=== PATIENT | female | born 1960 | race African-American/Black ===

== ENCOUNTER 2017-06-16 07:59 | Emergency (ER) | payer SELFPAY ==
[~2017-06-16] VITALS: Ht 170.2 cm; Wt 69.0 kg
[2017-06-16] MEDS ORDERED: CYCLOBENZAPRINE 10MG TABLET PO ONE (11:00)
[2017-06-16] MEDS ORDERED: KETOROLAC 60MG/2ML VIAL IM ONE (11:00)
[2017-06-16 11:14] LABS: CLARITY URINE CLEAR (CLEAR); COLOR URINE YELLOW (YELLOW); GLUCOSE URINE NEGATIVE (NEGATIVE); KETONES URINE NEGATIVE (NEGATIVE); LEUKOCYTE ESTERASE URINE NEGATIVE (NEGATIVE); NITRITE URINE NEGATIVE (NEGATIVE); OCCULT BLOOD URINE NEGATIVE (NEGATIVE); PH URINE 6.5 (4.5-8.0); PROTEIN URINE NEGATIVE (NEGATIVE); SPECIFIC GRAVITY URINE 1.006 (1.005-1.030); UROBILINOGEN URINE 0.2 E.U./dL (0.2-1.0)
[2017-06-16] MEDS ORDERED: HYDROCODONE/ACETAMINOPHEN 5/325MG TABLET PO ONE (13:45)
[2017-06-16 14:13] VITALS: BP 132/62
== END 2017-06-16 14:15 | disposition home or self-care (01) ==
LOC: ER 07:59
DX: M54.5 Low back pain (principal); F17.200 Nicotine dependence, unspecified, uncomplicated; Z88.0 Allergy status to penicillin; Z91.048 Other nonmedicinal substance allergy status
CPT/HCPCS: 72100; 73502; 81003; 96372; 99285; J1885; Z7610

== ENCOUNTER 2017-09-26 11:43 | Emergency (ER) | payer SELFPAY ==
[~2017-09-26] VITALS: Ht 170.2 cm; Wt 69.0 kg
[2017-09-26] MEDS ORDERED: ASPI-1159 PO (11:53)
[2017-09-26] MEDS ORDERED: SODIUM CHLORIDE 0.9% 1,000 ML IV ONE (12:05)
[2017-09-26] MEDS ORDERED: KETOROLAC 30MG/ML VIAL IV ONE (12:15)
[2017-09-26] MEDS ORDERED: METOCLOPRAMIDE HCL 10MG/2ML VIAL IV ONE (12:15)
[2017-09-26 12:30] LABS: BASOPHILS % 0.9 % (0.0-2.0); EOSINOPHILS % 1.9 % (0.0-5.0); HEMATOCRIT. 42.8 % (36.0-48.0); HEMOGLOBIN. 15.2 g/dL (12.0-16.0); LYMPHOCYTES % 33.3 % (20.0-50.0); MEAN CORPUSCULAR HEMOGLOBIN 34.2 pg (28.0-32.0); MEAN CORPUSCULAR VOLUME 96.2 fL (81.0-99.0); MEAN PLATELET VOLUME 8.9 fl (7.4-10.4); MONOCYTES % 6.4 % (2.0-8.0); NEUTROPHILS % 57.5 % (40.0-76.0); PLATELET 293 x1000/uL (130-400); RED BLOOD CELL COUNT 4.45 mill/uL (4.2-5.4); RED CELL DISTRIBUTION WIDTH 13.8 % (11.6-14.6)
[2017-09-26 12:41] LABS: PROTHROMBIN TIME 10.4 sec (9.4-11.6)
[2017-09-26 12:45] LABS: CARBON DIOXIDE 28 mEq/L (21-32); CHLORIDE 108 mEq/L (98-107)
[2017-09-26] MEDS ORDERED: ACETAMINOPHEN 325MG TABLET PO ONE (14:00)
[2017-09-26 15:05] LABS: CLARITY URINE CLEAR (CLEAR); COLOR URINE YELLOW (YELLOW); KETONES URINE NEGATIVE (NEGATIVE); LEUKOCYTE ESTERASE URINE NEGATIVE (NEGATIVE); NITRITE URINE NEGATIVE (NEGATIVE); OCCULT BLOOD URINE NEGATIVE (NEGATIVE); PROTEIN URINE NEGATIVE (NEGATIVE); SPECIFIC GRAVITY URINE 1.006 (1.005-1.030); UROBILINOGEN URINE 0.2 E.U./dL (0.2-1.0)
[2017-09-26 15:37] VITALS: BP 125/71
== END 2017-09-26 15:51 | disposition home or self-care (01) ==
LOC: ER 11:49
DX: R53.1 Weakness (principal); Z88.0 Allergy status to penicillin; Z91.041 Radiographic dye allergy status; Z98.1 Arthrodesis status; Z90.710 Acquired absence of both cervix and uterus; Z79.82 Long term (current) use of aspirin
CPT/HCPCS: 36415; 71045; 80053; 81003; 85025; 85610; 93005; 99285; J1885; J2765; J7030